=== PATIENT | female | born 1960 | race Caucasian/White ===

== ENCOUNTER 2022-05-09 08:21 | Day surgery (SDC) | payer OTHER ==
[~2022-05-09] VITALS: Ht 162.6 cm; Wt 92.7 kg
[~2022-05-09 08:21] MED LIST: ALPR.5 PO; DAYVIGO5 MG PO; ESTRADIOL1 MG PO; PREG50 PO; PROG100 PO; QUET100 PO; SUMA25 PO; TRAM50; [UNRECOGNIZED DRUG - OTHER]
== END 2022-05-09 10:45 | disposition home or self-care (01) ==
LOC: ORSCSDS 08:21
PROVIDERS: Student in an Organized Health Care Education/Training Program
PROC: 0DBM8ZX Excision of Descending Colon, Via Natural or Artificial Opening Endoscopic, Diagnostic (ICD-10-PCS; principal; 2022-05-09 09:00)
PROC: 0DB48ZX Excision of Esophagogastric Junction, Via Natural or Artificial Opening Endoscopic, Diagnostic (ICD-10-PCS; principal; 2022-05-09 09:00)
PROC: 0DB78ZX Excision of Stomach, Pylorus, Via Natural or Artificial Opening Endoscopic, Diagnostic (ICD-10-PCS; principal; 2022-05-09 09:00)
PROC: 0DBL8ZX Excision of Transverse Colon, Via Natural or Artificial Opening Endoscopic, Diagnostic (ICD-10-PCS; principal; 2022-05-09 09:00)
DX: K21.9 Gastro-esophageal reflux disease without esophagitis (principal); Z12.11 Encounter for screening for malignant neoplasm of colon; Z86.010 Personal history of colon polyps; R15.0 Incomplete defecation; K22.70 Barrett's esophagus without dysplasia; K29.70 Gastritis, unspecified, without bleeding; K44.9 Diaphragmatic hernia without obstruction or gangrene; K22.2 Esophageal obstruction; D12.3 Benign neoplasm of transverse colon; K63.5 Polyp of colon; K63.89 Other specified diseases of intestine; F43.10 Post-traumatic stress disorder, unspecified; F41.9 Anxiety disorder, unspecified; Z85.72 Personal history of non-Hodgkin lymphomas; E78.5 Hyperlipidemia, unspecified; G47.33 Obstructive sleep apnea (adult) (pediatric); Z79.899 Other long term (current) drug therapy
CPT/HCPCS: 88305; 88342; A9270; J2704; J7120

== ENCOUNTER 2022-08-29 10:19 | Day surgery (SDC) | payer OTHER ==
[~2022-08-29] VITALS: Ht 162.6 cm; Wt 86.6 kg
[2022-08-29] MEDS ORDERED: ZOLP10 (11:15)
[2022-08-29] MEDS ORDERED: ALPR.25 (11:15)
== END 2022-08-29 13:54 | disposition home or self-care (01) ==
LOC: ORSCSDS 10:19
PROVIDERS: Student in an Organized Health Care Education/Training Program
PROC: 0DBH8ZX Excision of Cecum, Via Natural or Artificial Opening Endoscopic, Diagnostic (ICD-10-PCS; principal; 2022-08-29 12:00)
PROC: 0DBN8ZX Excision of Sigmoid Colon, Via Natural or Artificial Opening Endoscopic, Diagnostic (ICD-10-PCS; principal; 2022-08-29 12:00)
PROC: 0DBL8ZX Excision of Transverse Colon, Via Natural or Artificial Opening Endoscopic, Diagnostic (ICD-10-PCS; principal; 2022-08-29 12:00)
PROC: 0DBK8ZX Excision of Ascending Colon, Via Natural or Artificial Opening Endoscopic, Diagnostic (ICD-10-PCS; principal; 2022-08-29 12:00)
DX: Z12.11 Encounter for screening for malignant neoplasm of colon (principal); Z86.010 Personal history of colon polyps; D12.0 Benign neoplasm of cecum; D12.2 Benign neoplasm of ascending colon; D12.3 Benign neoplasm of transverse colon; D12.5 Benign neoplasm of sigmoid colon; K63.5 Polyp of colon; K63.89 Other specified diseases of intestine; I10 Essential (primary) hypertension; F43.10 Post-traumatic stress disorder, unspecified; G47.33 Obstructive sleep apnea (adult) (pediatric); K21.9 Gastro-esophageal reflux disease without esophagitis; Z79.899 Other long term (current) drug therapy
CPT/HCPCS: 88305; J2704; J7120

== ENCOUNTER 2022-11-24 12:10 | Day surgery (SDC) | payer OTHER ==
[~2022-11-24] VITALS: Ht 165.1 cm; Wt 90.6 kg
[~2022-11-24 12:10] MED LIST changes: +ALPR.25; +ZOLP10
--- NOTE | 2022-11-24 13:31 | NUR ---
11/24/22 1331 Ross Freedman ROPIVACAINE 0.5% 30 MLS MIXED W/ EPI 0.15 ML (1MG/ML) PER ORDER TO MAKE ROPIVACAINE 0.5% 1:200,000 FOR INJECTION AT [facility].
--- NOTE | 2022-11-24 14:37 | NUR ---
11/24/22 1437 Becki Ellis REPORT TO MAYELA HERNANDEZ TO TAKE OVER CARE OF PT AT THIS TIME.
== END 2022-11-24 15:10 | disposition home or self-care (01) ==
LOC: ORSCSDS 12:10
PROVIDERS: Podiatrist Foot & Ankle Surgery
PROC: 0QBN0ZZ Excision of Right Metatarsal, Open Approach (ICD-10-PCS; 2022-11-24)
PROC: 0QBN0ZZ Excision of Right Metatarsal, Open Approach (ICD-10-PCS; principal; 2022-11-24 13:15)
DX: M21.621 Bunionette of right foot (principal); K21.9 Gastro-esophageal reflux disease without esophagitis; E66.9 Obesity, unspecified; Z68.33 Body mass index [BMI] 33.0-33.9, adult; Z79.899 Other long term (current) drug therapy
CPT/HCPCS: C1713; C1769; J0171; J0690; J2250; J2704; J2795; J3010; J7120

== ENCOUNTER 2023-03-23 08:46 | Day surgery (SDC) | payer OTHER ==
[~2023-03-23] VITALS: Ht 162.6 cm; Wt 94.5 kg
[2023-03-23] MEDS ORDERED: Phentermine HCl15 MG PO (09:26)
[2023-03-23] MEDS ORDERED: IMITREX100 MG PO (09:26)
[2023-03-23] MEDS ORDERED: Phentermine HCl15 MG (09:26)
[2023-03-23] MEDS ORDERED: IMITREX100 MG (09:26)
[2023-03-23] MEDS ORDERED: PREGABALIN75 MG (09:27)
--- NOTE | 2023-03-23 10:13 | NUR ---
03/23/23 Alisa3 Geeta Brady BICITRA GIVEN PER ANESTHESIA ORDERS AT 0947
[2023-03-23 11:32] VITALS: BP 91/66
== END 2023-03-23 11:48 | disposition home or self-care (01) ==
LOC: ORSCSDS 08:46
PROVIDERS: Podiatrist Foot & Ankle Surgery
PROC: 0JBR0ZZ Excision of Left Foot Subcutaneous Tissue and Fascia, Open Approach (ICD-10-PCS; principal; 2023-03-23 10:00)
PROC: 0JBQ0ZZ Excision of Right Foot Subcutaneous Tissue and Fascia, Open Approach (ICD-10-PCS; principal; 2023-03-23 10:00)
DX: D17.9 Benign lipomatous neoplasm, unspecified (principal); G47.33 Obstructive sleep apnea (adult) (pediatric); E66.9 Obesity, unspecified; Z68.35 Body mass index [BMI] 35.0-35.9, adult; Z79.899 Other long term (current) drug therapy
CPT/HCPCS: A9270; J0171; J0690; J1100; J1885; J2250; J2405; J2704; J2795; J3010; J7120

== ENCOUNTER 2024-03-02 13:32 | Emergency (ER) | payer OTHER ==
[~2024-03-02] VITALS: Ht 165.1 cm; Wt 86.2 kg
[~2024-03-02 13:32] MED LIST changes: +IMITREX100 MG; +IMITREX100 MG PO; +PREGABALIN75 MG; +Phentermine HCl15 MG; +Phentermine HCl15 MG PO
[2024-03-02 13:55] LABS: BASOPHILS ABSOLUTE AUTO 0.05 K/mm3 (0.00-0.23); BASOPHILS PERCENT AUTO 1 % (0-2); EOSINOPHILS ABSOLUTE AUTO 0.06 K/mm3 (0.00-0.68); EOSINOPHILS PERCENT AUTO 1 % (0-6); Hematocrit 42.9 % (33.0-51.0); Hemoglobin 14.5 g/dL (11.5-16.0); IMMATURE GRAN ABSOLUTE AUTO 0.02 K/mm3 (0.00-0.10); IMMATURE GRAN PERCENT AUTO 0 % (0-1); LYMPHOCYTES ABSOLUTE AUTO 3.09 K/mm3 (0.84-5.20); LYMPHOCYTES PERCENT AUTO 40 % (21-46); MONOCYTES ABSOLUTE AUTO 0.64 K/mm3 (0.16-1.47); MONOCYTES PERCENT AUTO 8 % (4-13); Mean Corpuscular HGB 29.8 pg (26.0-34.0); Mean Corpuscular HGB Conc 33.8 g/dL (31.5-36.5); Mean Corpuscular Volume 88 fL (80-100); NEUTROPHILS ABSOLUTE AUTO 3.94 K/mm3 (1.96-9.15); NEUTROPHILS PERCENT AUTO 51 % (41-73); Platelet Count 270 K/mm3 (150-400); RDW Coefficient Variation 12.9 % (11.7-14.2); RDW Standard Deviation 41.8 fL (35.1-46.3); Red Blood Cell Count 4.87 M/mm3 (3.80-5.20)
[2024-03-02] MEDS ORDERED: PROP10 PO ×2 (14:05→17:09)
[2024-03-02] MEDS ORDERED: ESTRADIOL1 M1 PO (14:05)
[2024-03-02] MEDS ORDERED: MOUNJARO7.5 MG/0.5 (14:05)
[2024-03-02] MEDS ORDERED: ALPRAZOLAM0.5 M1 PO (14:05)
[2024-03-02] MEDS ORDERED: BOTOX (14:07)
[2024-03-02 14:14] LABS: Albumin, Blood 3.9 g/dL (3.4-5.0); Albumin/Globulin Ratio 1.3 (0.8-1.8); Bilirubin, Total 0.6 mg/dL (0.1-1.0); Bun/Creatinine Ratio 8.8 (12.0-20.0); Calcium, Blood 8.7 mg/dL (8.5-10.1); Creatinine, Blood 1.13 mg/dL (0.40-1.00); Globulin, Blood 3.1 g/dL (2.2-4.0); Potassium, Blood 3.7 mmol/L (3.5-5.5)
[2024-03-02] MEDS ORDERED: Lidocaine 2% Viscous Soln 15 ML UDC PO ONE (15:30)
[2024-03-02] MEDS ORDERED: Mag Hydrox/AL Hydrox/Simeth 30 ML UDC PO ONE (15:30)
[2024-03-02 16:14] VITALS: BP 118/75
== END 2024-03-02 17:19 | disposition home or self-care (01) ==
LOC: ER 13:32
PROVIDERS: Student in an Organized Health Care Education/Training Program
DX: R07.9 Chest pain, unspecified (principal); Z79.899 Other long term (current) drug therapy; G43.909 Migraine, unspecified, not intractable, without status migrainosus
CPT/HCPCS: 71046; 80053; 84484; 85025; 93005; 93010; 99285-25; A9270

== ENCOUNTER 2025-05-20 09:25 | Day surgery (SDC) | payer OTHER ==
[~2025-05-20] VITALS: Ht 165.1 cm; Wt 75.8 kg
[~2025-05-20 09:25] MED LIST changes: +ALPRAZOLAM0.5 M1 PO; +BOTOX; +ESTRADIOL1 M1 PO; +MOUNJARO7.5 MG/0.5; +PROP10 PO
[2025-05-20] MEDS ORDERED: AJOVY AUTO225 MG/1.1 (09:56)
[2025-05-20] MEDS ORDERED: RIZATRIPTAN1014 PO (09:59)
[2025-05-20] MEDS ORDERED: BUTALB-ACETAMI1 EAC5 PO (10:00)
[2025-05-20] MEDS ORDERED: Retin-A20 G2 (10:01)
[2025-05-20] MEDS ORDERED: HYDROQUINONE (10:01)
[2025-05-20] MEDS ORDERED: FentaNYL Citrate 50 MCG/ML 2 ML Injection ONE ×3 (10:15→11:59)
[2025-05-20] MEDS ORDERED: Sugammadex Sodium 200 MG/2ML SDV (100 MG/ML) ONE (10:32)
[2025-05-20 12:19] VITALS: BP 119/70
== END 2025-05-20 12:58 | disposition home or self-care (01) ==
LOC: ORSCSDS 09:25
PROVIDERS: Otolaryngology
PROC: 0CTPXZZ Resection of Tonsils, External Approach (ICD-10-PCS; principal; 2025-05-20 10:45)
DX: J35.01 Chronic tonsillitis (principal); G47.33 Obstructive sleep apnea (adult) (pediatric); Z79.899 Other long term (current) drug therapy; Z79.85 Long-term (current) use of injectable non-insulin antidiabetic drugs
CPT/HCPCS: 88305; 88341; 88342; A9270; J2704; J3010; J7120

== ENCOUNTER 2025-06-11 08:20 | Day surgery (SDC) | payer OTHER ==
[2025-06-11] VITALS (27 sets, daily range): BP systolic 81–124; BP diastolic 39–79
[~2025-06-11] VITALS: Ht 165.1 cm; Wt 75.3 kg
[~2025-06-11 08:20] MED LIST changes: +AJOVY AUTO225 MG/1.1; +BUTALB-ACETAMI1 EAC5 PO; +HYDROQUINONE; +RIZATRIPTAN1014 PO; +Retin-A20 G2
[2025-06-11] MEDS ORDERED: Benzocaine Oral Spray 0.5ML UD ONE (08:30)
--- NOTE | 2025-06-11 08:32 | NUR ---
06/11/25 0832 Chidi Johnson CONFIRMED AND REVIEWED H&P, MEDCICATIONS, ALLERGIES, MEDICAL HISTORY, RESPIRATORY HISTORY, VITAL SIGNS, 3-LEAD EKG, CONSENTS, AND PHYSICIAN ORDERS. PATIENT CONFIRMS NPO STATUS AND AGREES WITH SCHEDULED PROCEDURE. MONITOR INTACT WITH CONTINUOUS PULSE OXIMETRY, CAPNOGRAPHY, 3-LEAD EKG, INTERMITTENT BP. SUPPLEMENTAL O2 TO BE TITRATED THROUGHOUT PROCEDURE TO MAINTAIN O2 SATURATION ABOVE 90%. PATIENT DETERMINED TO BE ASA APPROPRIATE FOR PROPOFOL SEDATION PRIOR TO START OF PROCEDURE BY DR. PONCE.
--- NOTE | 2025-06-11 08:45 | NUR ---
History, Chart, Medications and Allergies reviewed before start of procedure. Pre-Op teaching done. Pt verbalizes understanding. Patient confirms NPO status and agrees with scheduled surgery. Patient states colon prep results LIGHT YELLOW.
--- NOTE | 2025-06-11 10:00 | NUR ---
Discharge instructions reviewed with patient. Patient verbalizes understanding. Copy given to patient to take home. Patient States Post-Procedure ride home has been arranged. Discharged via wheelchair to private car for ride home.
== END 2025-06-11 10:00 | disposition home or self-care (01) ==
LOC: ORSCMMR 08:20 → ORD 09:00 → ORSCMMR 09:00
PROVIDERS: Internal Medicine Gastroenterology
PROC: 0DB58ZX Excision of Esophagus, Via Natural or Artificial Opening Endoscopic, Diagnostic (ICD-10-PCS; principal; 2025-06-11 09:00)
PROC: 0DB48ZX Excision of Esophagogastric Junction, Via Natural or Artificial Opening Endoscopic, Diagnostic (ICD-10-PCS; principal; 2025-06-11 09:00)
PROC: 0DBL8ZX Excision of Transverse Colon, Via Natural or Artificial Opening Endoscopic, Diagnostic (ICD-10-PCS; principal; 2025-06-11 09:00)
DX: K22.70 Barrett's esophagus without dysplasia (principal); Z12.11 Encounter for screening for malignant neoplasm of colon; Z86.0100 Personal history of colon polyps, unspecified; K44.9 Diaphragmatic hernia without obstruction or gangrene; K63.5 Polyp of colon; K63.89 Other specified diseases of intestine; K21.9 Gastro-esophageal reflux disease without esophagitis; C85.9A Non-Hodgkin lymphoma, unspecified, in remission; Z90.49 Acquired absence of other specified parts of digestive tract; G47.30 Sleep apnea, unspecified; F31.9 Bipolar disorder, unspecified; Z79.85 Long-term (current) use of injectable non-insulin antidiabetic drugs; Z79.899 Other long term (current) drug therapy
CPT/HCPCS: 88305; 88313; A9270; J2704; J7120